=== PATIENT | male | born 1980 | race Caucasian/White ===

== ENCOUNTER 2020-09-03 00:58 | Emergency (ER) | payer OTHER ==
[~2020-09-03] VITALS: Ht 182.9 cm; Wt 81.7 kg
[~2020-09-03 00:58] MED LIST: DOXYCYCLINE 10100 MG PO; FLEXERIL PO; NOHOMEMEDICATIONS; NORCO 5-325 TA1 EACH PO
[2020-09-03 01:07] VITALS: BP 121/83
== END 2020-09-03 01:21 | disposition home or self-care (01) ==
LOC: M.ERS 00:58
DX: S90.822A Blister (nonthermal), left foot, initial encounter (principal); S90.821A Blister (nonthermal), right foot, initial encounter; X31.XXXA Exposure to excessive natural cold, initial encounter; Y93.89 Activity, other specified; Y92.89 Other specified places as the place of occurrence of the external cause; Y99.8 Other external cause status